=== PATIENT | male | born 1980 | race Asian ===

== ENCOUNTER 2024-04-24 20:22 | Emergency (ER) | payer OTHER, SELFPAY ==
[2024-04-24 20:25] VITALS: BP 135/92
--- NOTE | 2024-04-24 21:42 | ED.SKININJ ---
HPI-Injury
General
Chief Complaint: Skin Surface Trauma
Source: patient
Exam Limitations: none
Time Seen by Provider: 04/24/24 21:20
Nursing documentation reviewed up to this point in time: agreed with
History of Present Illness-Injury
Is this injury a work related problem?: No
Is pt an associate of [facility]/[place]?: No
Initial Injury comments:
Accidentally cut self with knife. Sustained lac to right distal index finger. Injury occurred just [employer]
Past History
Past History
ED Past Medical History: None
Review of Systems
Review of Systems
Allergies reviewed?: Yes
All Other Systems: ROS reviewed and negative except as documented in HPI and ROS
Constitutional: Reports no symptoms
Musculoskeletal: Reports no symptoms
Skin: Reports other (Laceration to right distal index finger)
Neurological: Reports no symptoms
Psychiatric: Reports no symptoms
Skin Exam
Laceration
Right Distal Second Finger:
Length in cm: 1.5
Orientation: horizontal
Type of Laceration: simple
Any active bleeding?: no active bleeding
Distal skin color and temperature: normal-warm & good color
Normal distal neurovascular exam: Yes
Range of motion: full
Phy Exam
General Physical Exam
General Presentation: well appearing and no apparent distress
General age: appears stated age
General Skin: warm and dry
General Habitus: normal
General Mental: alert
General Hydration: appears well hydrated
Musculoskeletal Exam
Musculoskeletal Exam: full ROM and neuro vasc intact
Skin Exam
Skin Exam: normal color, warm/dry and no rash
Psychiatric Exam
Psychiatric Exam: normal mood/affect
Course
Orders/Labs/Results
Orders:
Orders
04/24/24 21:41
Tetanus/Diphth/Acelpertussis [Adacel] 0.5 ml IM .ONCE ONE
Vital Signs
Initial and Last Documented VS:
Initial Vital Signs
Temp Pulse Resp BP Pulse Ox
97.9 F 79 20 135/92 96
04/24/24 20:25 04/24/24 20:25 04/24/24 20:25 04/24/24 20:25 04/24/24 20:25
Last Documented Vital Signs
Temp Pulse Resp BP Pulse Ox
97.9 F 79 20 135/92 96
04/24/24 20:25 04/24/24 20:25 04/24/24 20:25 04/24/24 20:25 04/24/24 20:25
Procedures
Laceration Closure
Right Distal First Finger:
Status of Wound: clean
Description of Wound Edges: sharp
Preparation: cleaned with saline and cleaned with Betadine
Anesthesia: 1% Lidocaine and Digital-Regional
Revision/Debridement: routine- no revision
Wound exploration: explored to base- no FB
Type of Closure: single layer closure
Skin Closure Material: 5-0 prolene
Number of sutures: 4
*Critical Care Note
Total Time (30-74mins, 75-104mins- exclusive of procedures): Not Applicable
ED Attending Note
-
Portions of this chart may have been created with voice recognition software.� Occasional wrong word or��sound alike� substitutions may have occurred due to the inherent limitations of voice recognition software.
Discharge Plan
Departure
Patient Disposition: Home (Routine Discharge)
Date of Disposition: 04/24/24
Time of Disposition: 21:56
Patient with high blood pressure during this ER visit?: No
Condition: Good
Covid-19: Not Applicable
Discharge Problem:
Finger laceration
Instructions: Laceration Repair With Stitches (DC)
Referrals:
Germain Pearson, DO [Family Provider] - (Sutures can be removed in 7-10 days)
Interventions
Interventions:
*Risk Screen - Suicide Last Done: 04/24/24 20:25
*General Assessment Last Done: 04/24/24 20:25
*Neglect/Abuse Screening Last Done: 04/24/24 20:25
ED- Fall Risk Assessment Last Done: 04/24/24 20:25
*ED COVID-19 Vaccine History Last Done: 04/24/24 20:58
ED-Skin Assessment Last Done: 04/24/24 20:58
Discharge Date and Time
Print Language: [id number]
[2024-04-24] MEDS: ADACEL 0.5 ML IM (21:58)
[2024-04-24 22:03] VITALS: BP 131/87
== END 2024-04-24 22:03 | disposition home or self-care (01) ==
LOC: EMR 20:22
PROVIDERS: EMERGENCY PHYSICIAN Emergency Medicine; FAMILY PHYSICIAN Student in an Organized Health Care Education/Training Program
DX: S61.210A Laceration without foreign body of right index finger without damage to nail, initial encounter (principal); W26.0XXA Contact with knife, initial encounter; Z23 Encounter for immunization
CPT/HCPCS: 12001; 99282; 90471; 90715

== ENCOUNTER → 2024-07-22 16:42 | Outpatient (REF) | payer OTHER, SELFPAY | LOC: PAVMRI 16:42 | PROVIDERS: ATTENDING PHYSICIAN Physical Medicine & Rehabilitation; FAMILY PHYSICIAN Student in an Organized Health Care Education/Training Program | DX: M75.41 Impingement syndrome of right shoulder (principal) | CPT/HCPCS: 73221 ==

== ENCOUNTER → 2025-05-15 15:38 | Outpatient (REF) | payer OTHER, SELFPAY | LOC: RAD 15:38 | PROVIDERS: ATTENDING PHYSICIAN Physician Assistant; FAMILY PHYSICIAN Student in an Organized Health Care Education/Training Program | DX: R10.9 Unspecified abdominal pain (principal) | CPT/HCPCS: 74018 ==